=== PATIENT | male | born 1950 ===

== ENCOUNTER 2018-07-21 09:29 | Emergency (ER) | payer MEDICARE, OTHER ==
[~2018-07-21] VITALS: Ht 182.9 cm; Wt 90.7 kg
[~2018-07-21 09:29] MED LIST: ACYC5TO15G TOP; ALBU90OI INH; ASCO500 PO; ASPI81CH PO; ATHLETE S FOOT; ATOR20 PO; ATOR40TA PO; Ativan1 MG SL; CHOL10002 PO; CLOP75 PO; CYCL10 PO; DEXA4 PO; DIAZ10 PO; DIAZ2 PO; DIAZ5 PO; DULO60 PO; Dexamethasone1 MG PO; GINGER TEA; GUAI120S1 PO; GUAI600T33 PO; HYDACE5 PO; Hydrochloroth12.5 MG PO; IBUP600 PO; LEVE500 PO; LISHYD1012 PO; LISI10 PO; Norco 10-325 T1 EACH PO; OXYACE5T PO; Pepcid40 MG PO; Prednisone20 MG PO; Prinivil10 MG PO; RXHYDACE; SENN187 PO; SIME80CH PO; SPACE CHAMBER1 EACH MC; SULTRIDS PO; TICA90TA PO; TUMERIC; TURMERIC500 M1 PO; TURMERIC500 M2 PO; VALARIAN ROOT; VICODIN 5-3001 EACH PO; Vitamin C100 M1 PO; ZESTORETIC 20-121 EA PO; Zithromax250 MG PO
[2018-07-21 10:44] LABS: BASOPHILS ABSOLUTE AUTO 0.02 K/mm3 (0.00-0.23); BASOPHILS PERCENT AUTO 0 % (0-2); EOSINOPHILS ABSOLUTE AUTO 0.25 K/mm3 (0.00-0.68); EOSINOPHILS PERCENT AUTO 3 % (0-6); Hematocrit 43.4 % (37.0-53.0); Hemoglobin 14.4 g/dL (13.5-17.5); IMMATURE GRAN ABSOLUTE AUTO 0.04 K/mm3 (0.00-0.10); IMMATURE GRAN PERCENT AUTO 1 % (0-1); LYMPHOCYTES ABSOLUTE AUTO 1.15 K/mm3 (0.84-5.20); LYMPHOCYTES PERCENT AUTO 14 % (21-46); MONOCYTES ABSOLUTE AUTO 1.07 K/mm3 (0.16-1.47); MONOCYTES PERCENT AUTO 13 % (4-13); Mean Corpuscular HGB Conc 33.2 g/dL (31.5-36.5); Mean Corpuscular Volume 90 fL (80-100); Mean Platelet Volume 10.2 fL (9.1-12.4); NEUTROPHILS ABSOLUTE AUTO 5.99 K/mm3 (1.96-9.15); NEUTROPHILS PERCENT AUTO 70 % (41-73); Platelet Count 209 K/mm3 (150-400); RDW Standard Deviation 46.9 fL (35.1-46.3); White Blood Cell Count 8.52 K/mm3 (4.00-11.30)
[2018-07-21 11:01] LABS: Alanine Aminotransfer (ALT/SGP 45 U/L (12-78); Albumin, Blood 3.1 g/dL (3.4-5.0); Alk Phos 67 U/L (50-136); Anion Gap 6 mmol/L (6-16); Aspartate Aminotrans (AST/SGOT 26 U/L (12-37); Bilirubin, Total 1.3 mg/dL (0.1-1.0); Blood Urea Nitrogen 20 mg/dL (8-24); Bun/Creatinine Ratio 17.9 (12.0-20.0); CO2, Blood 31 mmol/L (21-32); Calcium, Blood 8.7 mg/dL (8.5-10.1); Chloride, Blood 107 mmol/L (98-108); Creatinine, Blood 1.12 mg/dL (0.60-1.20); Glomerular Filtration Rate >60 (60-); Glucose, Blood 82 mg/dL (70-99); Magnesium, Blood 2.2 mg/dL (1.6-2.4); Potassium, Blood 3.8 mmol/L (3.5-5.5); Sodium, Blood 144 mmol/L (136-145); Total Protein, Blood 6.1 g/dL (6.4-8.2)
[2018-07-21] MEDS ORDERED: Omeprazole20 M1 PO (11:25)
[2018-07-21] MEDS ORDERED: FAMO10 PO (11:26)
[2018-07-21 11:35] LABS: Bilirubin, Urine Neg (Neg); Blood, Urine Neg (Neg); Glucose Qualitative, Urine Neg (Neg); Ketones, Urine Neg (Neg); Leukocyte Esterase, Urine Neg (Neg); Nitrite, Urine Neg (Neg); Protein, Urine Neg (Neg); Specific Gravity, Urine 1.015 (1.003-1.022); Urobilinogen, Urine NORM (Normal)
[2018-07-21 12:12] LABS: Appearance, Urine Clear (Clear); Color, Urine Yellow (P-Yellow)
[2018-07-21] MEDS ORDERED: Cipro250 MG PO (12:40)
[2018-07-21] MEDS ORDERED: Zofran4 MG PO (12:40)
[2018-07-21] MEDS ORDERED: Norco 5-325 Ta1 EACH PO (12:40)
[2018-07-21] MEDS ORDERED: Flagyl250 MG PO (12:40)
== END 2018-07-21 12:51 | disposition home or self-care (01) ==
LOC: ER 09:29
PROVIDERS: Emergency Medicine
DX: K52.9 Noninfective gastroenteritis and colitis, unspecified (principal); Z88.8 Allergy status to other drugs, medicaments and biological substances; Z88.5 Allergy status to narcotic agent; Z79.899 Other long term (current) drug therapy; Z79.82 Long term (current) use of aspirin; I10 Essential (primary) hypertension; Z87.891 Personal history of nicotine dependence; Z85.841 Personal history of malignant neoplasm of brain
CPT/HCPCS: 36415; 74176; 80053; 81003; 83690; 83735; 85025; 96361; 96374; 96375; 96376; 99284-25; J2405; J3010; J7030

== ENCOUNTER → 2018-07-27 | Outpatient (CLI) | payer MEDICARE, OTHER ==
[~2018-07-27] MED LIST changes: +Cipro250 MG PO; +FAMO10 PO; +Flagyl250 MG PO; +Norco 5-325 Ta1 EACH PO; +Omeprazole20 M1 PO; +Zofran4 MG PO
[2018-07-27 12:08] LABS: Alanine Aminotransfer (ALT/SGP 76 U/L (12-78); Albumin, Blood 3.7 g/dL (3.4-5.0); Albumin/Globulin Ratio 1.2 (0.8-1.8); Alk Phos 56 U/L (40-126); Anion Gap 9 mmol/L (6-16); Aspartate Aminotrans (AST/SGOT 48 U/L (12-37); Bilirubin, Total 0.9 mg/dL (0.1-1.0); Blood Urea Nitrogen 9 mg/dL (8-24); Bun/Creatinine Ratio 7.7 (12.0-20.0); CO2, Blood 26 mmol/L (21-32); Calcium, Blood 9.3 mg/dL (8.5-10.1); Chloride, Blood 107 mmol/L (98-108); Creatinine, Blood 1.17 mg/dL (0.60-1.20); Globulin, Blood 3.1 g/dL (2.2-4.0); Glomerular Filtration Rate >60 (60-); Glucose, Blood 95 mg/dL (70-99); Potassium, Blood 3.7 mmol/L (3.5-5.5); Sodium, Blood 142 mmol/L (136-145); Total Protein, Blood 6.8 g/dL (6.4-8.2)
== END | disposition home or self-care (01) ==
LOC: LAB EV 11:47 → LAB SHORT 11:47
PROVIDERS: Physician Assistant
DX: K52.9 Noninfective gastroenteritis and colitis, unspecified (principal)
CPT/HCPCS: 80053

== ENCOUNTER → 2018-07-28 | Outpatient (CLI) | payer MEDICARE, OTHER ==
[2018-07-28 12:18] LABS: Adenovirus F 40/41 Not Detected (NOT DETECT); Astrovirus Not Detected (NOT DETECT); Campylobacter Sp Not Detected (NOT DETECT); Cryptosporidium Not Detected (NOT DETECT); Cyclospora Cayetanensis Not Detected (NOT DETECT); E. Coli O157 Not Detected (NOT DETECT); Entamoeba Histolytica Not Detected (NOT DETECT); Enteroaggregative E. coli-EAEC Not Detected (NOT DETECT); Enteropathogenic E. coli-EPEC Not Detected (NOT DETECT); Enterotoxigenic E. coli-ETEC Not Detected (NOT DETECT); Giardia Lamblia Not Detected (NOT DETECT); Norovirus GI/GII Not Detected (NOT DETECT); Plesiomonas Shigelloides Not Detected (NOT DETECT); Rotavirus A Not Detected (NOT DETECT); Salmonella Sp Not Detected (NOT DETECT); Sapovirus Not Detected (NOT DETECT); Shiga Toxin-prod E. coli-STEC Not Detected (NOT DETECT); Shigella/Enteroin E. coli-EIEC Not Detected (NOT DETECT); Vibrio Cholerae Not Detected (NOT DETECT); Vibrio Sp Not Detected (NOT DETECT); Yersinia Enterocolitica Not Detected (NOT DETECT)
== END | disposition home or self-care (01) ==
LOC: LAB EV 08:30
PROVIDERS: Physician Assistant
DX: K52.9 Noninfective gastroenteritis and colitis, unspecified (principal)
CPT/HCPCS: 87507

== ENCOUNTER 2018-08-12 13:06 | Emergency (ER) | payer MEDICARE, OTHER ==
[~2018-08-12] VITALS: Ht 182.9 cm; Wt 93.4 kg
[2018-08-12 14:03] LABS: BASOPHILS ABSOLUTE AUTO 0.08 K/mm3 (0.00-0.23); BASOPHILS PERCENT AUTO 1 % (0-2); EOSINOPHILS ABSOLUTE AUTO 0.18 K/mm3 (0.00-0.68); EOSINOPHILS PERCENT AUTO 3 % (0-6); Hematocrit 45.4 % (37.0-53.0); Hemoglobin 15.1 g/dL (13.5-17.5); IMMATURE GRAN ABSOLUTE AUTO 0.02 K/mm3 (0.00-0.10); IMMATURE GRAN PERCENT AUTO 0 % (0-1); LYMPHOCYTES PERCENT AUTO 24 % (21-46); MONOCYTES ABSOLUTE AUTO 0.95 K/mm3 (0.16-1.47); MONOCYTES PERCENT AUTO 15 % (4-13); Mean Corpuscular HGB 29.2 pg (26.0-34.0); Mean Corpuscular HGB Conc 33.3 g/dL (31.5-36.5); Mean Corpuscular Volume 88 fL (80-100); Mean Platelet Volume 9.7 fL (9.1-12.4); NEUTROPHILS ABSOLUTE AUTO 3.56 K/mm3 (1.96-9.15); NEUTROPHILS PERCENT AUTO 57 % (41-73); Platelet Count 296 K/mm3 (150-400); RDW Coefficient Variation 13.4 % (11.7-14.2); RDW Standard Deviation 43.2 fL (35.1-46.3); Red Blood Cell Count 5.18 M/mm3 (4.30-5.90); White Blood Cell Count 6.29 K/mm3 (4.00-11.30)
[2018-08-12 14:17] LABS: Alanine Aminotransfer (ALT/SGP 47 U/L (12-78); Albumin, Blood 3.3 g/dL (3.4-5.0); Alk Phos 56 U/L (50-136); Anion Gap 7 mmol/L (6-16); Aspartate Aminotrans (AST/SGOT 44 U/L (12-37); Bilirubin, Total 1.2 mg/dL (0.1-1.0); Blood Urea Nitrogen 6 mg/dL (8-24); Bun/Creatinine Ratio 6.4 (12.0-20.0); CO2, Blood 29 mmol/L (21-32); Calcium, Blood 9.1 mg/dL (8.5-10.1); Chloride, Blood 109 mmol/L (98-108); Creatinine, Blood 0.94 mg/dL (0.60-1.20); Globulin, Blood 3.2 g/dL (2.2-4.0); Glomerular Filtration Rate >60 (60-); Glucose, Blood 94 mg/dL (70-99); Potassium, Blood 3.7 mmol/L (3.5-5.5); Sodium, Blood 145 mmol/L (136-145); Total Protein, Blood 6.5 g/dL (6.4-8.2)
== END 2018-08-12 16:50 | disposition home or self-care (01) ==
LOC: ER 13:06
PROVIDERS: Internal Medicine
DX: R53.1 Weakness (principal); I10 Essential (primary) hypertension; Z87.891 Personal history of nicotine dependence
CPT/HCPCS: 36415; 71046; 80053; 84484; 85025; 93005; 93010; 99285-25

== ENCOUNTER 2019-04-04 11:58 | Emergency (ER) | payer MEDICARE, OTHER ==
[~2019-04-04] VITALS: Ht 182.9 cm; Wt 84.8 kg
[~2019-04-04 11:58] MED LIST changes: +Diflucan100 MG PO; +HYDR25SUP PR
[2019-04-04] MEDS ORDERED: Norco 5-325 Ta1 EACH PO (13:15)
== END 2019-04-04 13:43 | disposition home or self-care (01) ==
LOC: ER 11:58
DX: S51.811A Laceration without foreign body of right forearm, initial encounter (principal); W22.8XXA Striking against or struck by other objects, initial encounter; I10 Essential (primary) hypertension; Z87.891 Personal history of nicotine dependence; Z88.8 Allergy status to other drugs, medicaments and biological substances; Z79.899 Other long term (current) drug therapy; Z79.891 Long term (current) use of opiate analgesic
CPT/HCPCS: 73090; 99283-25; A9270-GY

== ENCOUNTER 2019-06-13 11:20 | Emergency (ER) | payer MEDICARE, OTHER ==
[~2019-06-13] VITALS: Ht 182.9 cm; Wt 86.2 kg
[2019-06-13 12:03] LABS: BASOPHILS ABSOLUTE AUTO 0.05 K/mm3 (0.00-0.23); BASOPHILS PERCENT AUTO 1 % (0-2); EOSINOPHILS ABSOLUTE AUTO 0.12 K/mm3 (0.00-0.68); EOSINOPHILS PERCENT AUTO 3 % (0-6); Hematocrit 36.5 % (37.0-53.0); IMMATURE GRAN ABSOLUTE AUTO 0.03 K/mm3 (0.00-0.10); IMMATURE GRAN PERCENT AUTO 1 % (0-1); LYMPHOCYTES ABSOLUTE AUTO 1.18 K/mm3 (0.84-5.20); LYMPHOCYTES PERCENT AUTO 24 % (21-46); MONOCYTES ABSOLUTE AUTO 0.58 K/mm3 (0.16-1.47); MONOCYTES PERCENT AUTO 12 % (4-13); Mean Corpuscular HGB 32.3 pg (26.0-34.0); Mean Corpuscular HGB Conc 32.9 g/dL (31.5-36.5); Mean Corpuscular Volume 98 fL (80-100); Mean Platelet Volume 9.4 fL (9.1-12.4); NEUTROPHILS ABSOLUTE AUTO 2.92 K/mm3 (1.96-9.15); NEUTROPHILS PERCENT AUTO 60 % (41-73); Platelet Count 254 K/mm3 (150-400); RDW Coefficient Variation 15.3 % (11.7-14.2); RDW Standard Deviation 55.4 fL (35.1-46.3); Red Blood Cell Count 3.72 M/mm3 (4.30-5.90); White Blood Cell Count 4.88 K/mm3 (4.00-11.30)
[2019-06-13 12:18] LABS: Source, Urine Clean Catch
[2019-06-13 12:24] LABS: Bilirubin, Urine Neg (Neg); Blood, Urine Neg (Neg); Glucose Qualitative, Urine Neg (Neg); Ketones, Urine Neg (Neg); Leukocyte Esterase, Urine Neg (Neg); Nitrite, Urine Neg (Neg); Protein, Urine Neg (Neg); Urobilinogen, Urine NORM (Normal)
[2019-06-13 12:29] LABS: Appearance, Urine Clear (Clear); Color, Urine Yellow (P-Yellow)
[2019-06-13 12:40] LABS: Alanine Aminotransfer (ALT/SGP 44 U/L (12-78); Albumin, Blood 3.1 g/dL (3.4-5.0); Alk Phos 61 U/L (50-136); Anion Gap 8 mmol/L (6-16); Aspartate Aminotrans (AST/SGOT 40 U/L (12-37); Bilirubin, Total 0.8 mg/dL (0.1-1.0); Blood Urea Nitrogen 7 mg/dL (8-24); Bun/Creatinine Ratio 9.4 (12.0-20.0); CO2, Blood 28 mmol/L (21-32); Calcium, Blood 9.2 mg/dL (8.5-10.1); Chloride, Blood 111 mmol/L (98-108); Creatinine, Blood 0.74 mg/dL (0.60-1.20); Glomerular Filtration Rate >60 (60-); Glucose, Blood 99 mg/dL (70-99); Potassium, Blood 3.6 mmol/L (3.5-5.5); Sodium, Blood 147 mmol/L (136-145); Total Protein, Blood 6.1 g/dL (6.4-8.2)
[2019-06-13] MEDS ORDERED: Prinivil10 MG PO (13:21)
== END 2019-06-13 14:45 | disposition home or self-care (01) ==
LOC: ER 11:20
PROVIDERS: Emergency Medicine
DX: K21.9 Gastro-esophageal reflux disease without esophagitis (principal); Z88.8 Allergy status to other drugs, medicaments and biological substances; Z88.5 Allergy status to narcotic agent; Z79.899 Other long term (current) drug therapy; I10 Essential (primary) hypertension; E66.9 Obesity, unspecified; Z87.891 Personal history of nicotine dependence; Z68.25 Body mass index [BMI] 25.0-25.9, adult
CPT/HCPCS: 36415; 80053; 81003; 83690; 85025; 93005; 93010; 99284-25

== ENCOUNTER 2019-07-22 12:16 | Emergency (ER) | payer MEDICARE, OTHER ==
[~2019-07-22] VITALS: Ht 182.9 cm; Wt 86.6 kg
[2019-07-22] MEDS ORDERED: Zantac150 MG PO (12:47)
[2019-07-22] MEDS ORDERED: CITA20 PO (12:47)
[2019-07-22] MEDS ORDERED: Aspir 8181 MG PO (12:49)
== END 2019-07-22 13:25 | disposition home or self-care (01) ==
LOC: ER 12:16
DX: I10 Essential (primary) hypertension (principal); Z87.891 Personal history of nicotine dependence; Z88.8 Allergy status to other drugs, medicaments and biological substances; Z88.5 Allergy status to narcotic agent; Z79.899 Other long term (current) drug therapy; Z79.82 Long term (current) use of aspirin; E66.9 Obesity, unspecified; Z68.25 Body mass index [BMI] 25.0-25.9, adult
CPT/HCPCS: 99283

== ENCOUNTER 2020-11-20 10:14 | Emergency (ER) | payer MEDICARE, OTHER ==
[~2020-11-20] VITALS: Ht 182.9 cm; Wt 83.0 kg
[~2020-11-20 10:14] MED LIST changes: +Aspir 8181 MG PO; +CITA20 PO; +CYAN500 PO; +DEXA2 PO; +Fish Oil 10001000 MG GT; +HYDROCHLOROTH12.5 MG PO; +KETO200 PO; +OMEP20ER PO; +POTA10T PO; +PROCTOSOL-HC30 GM; +Slo-Niacin250 MG PO; +Zantac150 MG PO
[2020-11-20 12:12] LABS: BASOPHILS ABSOLUTE AUTO 0.01 K/mm3 (0.00-0.23); BASOPHILS PERCENT AUTO 0 % (0-2); EOSINOPHILS ABSOLUTE AUTO 0.01 K/mm3 (0.00-0.68); EOSINOPHILS PERCENT AUTO 0 % (0-6); Hematocrit 36.9 % (37.0-53.0); Hemoglobin 12.3 g/dL (13.5-17.5); IMMATURE GRAN ABSOLUTE AUTO 0.18 K/mm3 (0.00-0.10); IMMATURE GRAN PERCENT AUTO 2 % (0-1); LYMPHOCYTES PERCENT AUTO 3 % (21-46); MONOCYTES ABSOLUTE AUTO 0.45 K/mm3 (0.16-1.47); MONOCYTES PERCENT AUTO 4 % (4-13); Mean Corpuscular HGB 31.5 pg (26.0-34.0); Mean Corpuscular HGB Conc 33.3 g/dL (31.5-36.5); Mean Corpuscular Volume 94 fL (80-100); Mean Platelet Volume 9.4 fL (9.1-12.4); NEUTROPHILS ABSOLUTE AUTO 10.79 K/mm3 (1.96-9.15); NEUTROPHILS PERCENT AUTO 91 % (41-73); NRBC ABSOLUTE 0.02 K/mm3 (0.00-0.02); NRBC Auto 0.2 /100 WBC (0.0-0.2); Platelet Count 121 K/mm3 (150-400); RDW Coefficient Variation 16.5 % (11.7-14.2); RDW Standard Deviation 56.9 fL (35.1-46.3); Red Blood Cell Count 3.91 M/mm3 (4.30-5.90); White Blood Cell Count 11.84 K/mm3 (4.00-11.30)
[2020-11-20 12:29] LABS: Prothrombin Time Results 10.7 Sec (9.7-11.5)
[2020-11-20 12:33] LABS: Alanine Aminotransfer (ALT/SGP 68 U/L (12-78); Albumin/Globulin Ratio 1.3 (0.8-1.8); Alk Phos 86 U/L (50-136); Anion Gap 7 mmol/L (6-16); Aspartate Aminotrans (AST/SGOT 23 U/L (12-37); Bilirubin, Total 1.9 mg/dL (0.1-1.0); Blood Urea Nitrogen 22 mg/dL (8-24); Bun/Creatinine Ratio 26.1 (12.0-20.0); CO2, Blood 30 mmol/L (21-32); Calcium, Blood 8.6 mg/dL (8.5-10.1); Chloride, Blood 102 mmol/L (98-108); Creatinine, Blood 0.84 mg/dL (0.60-1.20); Globulin, Blood 2.3 g/dL (2.2-4.0); Glomerular Filtration Rate >60 (60-); Glucose, Blood 102 mg/dL (70-99); Potassium, Blood 3.5 mmol/L (3.5-5.5); Sodium, Blood 139 mmol/L (136-145); Total Protein, Blood 5.3 g/dL (6.4-8.2)
[2020-11-20] MEDS ORDERED: FUROSEMIDE20 MG PO (14:04)
[2020-11-20] MEDS ORDERED: ARIPIPRAZOLE2 M1 PO (14:04)
[2020-11-20] MEDS ORDERED: K-TAB ER20 ME1 PO (14:05)
[2020-11-20] MEDS ORDERED: Cephalexin500 MG PO (14:14)
[2020-11-20] MEDS ORDERED: ZOLP10 PO (14:16)
[2020-11-20] MEDS ORDERED: HYDACE10B PO (14:17)
== END 2020-11-20 14:42 | disposition home or self-care (01) ==
LOC: ER 10:14
PROVIDERS: Emergency Medicine
DX: M79.605 Pain in left leg (principal); I10 Essential (primary) hypertension; J43.9 Emphysema, unspecified; Z79.52 Long term (current) use of systemic steroids; Z79.899 Other long term (current) drug therapy; Z79.82 Long term (current) use of aspirin; Z88.8 Allergy status to other drugs, medicaments and biological substances
CPT/HCPCS: 36415; 73610; 73630; 80053; 83605; 85025; 85610; 85730; 93971; 96365; 99284-25; A9270; J3370

== ENCOUNTER 2021-02-18 12:05 | Inpatient (IN) | payer MEDICARE, OTHER ==
[~2021-02-18] VITALS: Ht 177.8 cm; Wt 90.4 kg
[~2021-02-18 12:05] MED LIST changes: +ARIPIPRAZOLE2 M1 PO; +Cephalexin500 MG PO; +FUROSEMIDE20 MG PO; +HYDACE10B PO; +K-TAB ER20 ME1 PO; +ZOLP10 PO
[2021-02-18 12:46] LABS: BASOPHILS ABSOLUTE AUTO 0.09 K/mm3 (0.00-0.23); BASOPHILS PERCENT AUTO 1 % (0-2); EOSINOPHILS ABSOLUTE AUTO 0.19 K/mm3 (0.00-0.68); EOSINOPHILS PERCENT AUTO 3 % (0-6); Hematocrit 38.3 % (37.0-53.0); Hemoglobin 12.4 g/dL (13.5-17.5); IMMATURE GRAN ABSOLUTE AUTO 0.09 K/mm3 (0.00-0.10); IMMATURE GRAN PERCENT AUTO 1 % (0-1); LYMPHOCYTES ABSOLUTE AUTO 1.18 K/mm3 (0.84-5.20); LYMPHOCYTES PERCENT AUTO 16 % (21-46); MONOCYTES ABSOLUTE AUTO 0.66 K/mm3 (0.16-1.47); MONOCYTES PERCENT AUTO 9 % (4-13); Mean Corpuscular HGB 31.1 pg (26.0-34.0); Mean Corpuscular HGB Conc 32.4 g/dL (31.5-36.5); Mean Corpuscular Volume 96 fL (80-100); Mean Platelet Volume 9.7 fL (9.1-12.4); NEUTROPHILS ABSOLUTE AUTO 5.26 K/mm3 (1.96-9.15); NEUTROPHILS PERCENT AUTO 71 % (41-73); Platelet Count 325 K/mm3 (150-400); RDW Standard Deviation 56.8 fL (35.1-46.3); Red Blood Cell Count 3.99 M/mm3 (4.30-5.90); White Blood Cell Count 7.47 K/mm3 (4.00-11.30)
[2021-02-18 12:48] LABS: Source, Urine Clean Catch
[2021-02-18 12:54] LABS: Appearance, Urine Clear (Clear); Bilirubin, Urine Neg (Neg); Blood, Urine Neg (Neg); Color, Urine Yellow (P-Yellow); Glucose Qualitative, Urine Neg (Neg); Ketones, Urine Neg (Neg); Leukocyte Esterase, Urine 1+ (Neg); Nitrite, Urine Neg (Neg); Protein, Urine 1+ (Neg); Urobilinogen, Urine NORM (Normal)
[2021-02-18 13:03] LABS: Alanine Aminotransfer (ALT/SGP 29 U/L (12-78); Albumin, Blood 2.9 g/dL (3.4-5.0); Albumin/Globulin Ratio 0.9 (0.8-1.8); Alk Phos 111 U/L (50-136); Anion Gap 5 mmol/L (6-16); Aspartate Aminotrans (AST/SGOT 25 U/L (12-37); Bilirubin, Total 1.2 mg/dL (0.1-1.0); Blood Urea Nitrogen 13 mg/dL (8-24); Bun/Creatinine Ratio 17.2 (12.0-20.0); CO2, Blood 28 mmol/L (21-32); Chloride, Blood 111 mmol/L (98-108); Creatinine, Blood 0.76 mg/dL (0.60-1.20); Globulin, Blood 3.3 g/dL (2.2-4.0); Glomerular Filtration Rate >60 (60-); Glucose, Blood 92 mg/dL (70-99); Potassium, Blood 3.5 mmol/L (3.5-5.5); Sodium, Blood 144 mmol/L (136-145); Total Protein, Blood 6.2 g/dL (6.4-8.2)
[2021-02-18 13:09] LABS: Bacteria Rare /hpf; Calcium Oxalate Crystals Few /hpf; Mucus Light (0-Heavy); Red Blood Cells, Urine 0-2 /hpf (0-2); Squamous Epithelial Cells Rare /hpf (Few)
[2021-02-18] MEDS ORDERED: Prozac20 MG PO (14:25)
[2021-02-18] MEDS ORDERED: FURO20 PO (14:31)
[2021-02-18] MEDS ORDERED: DIAZEPAM10 MG PO (18:30)
[2021-02-18] MEDS ORDERED: ZOLPIDEM TARTRA10 MG PO (18:31)
[2021-02-18] MEDS ORDERED: Abilify2 MG PO (18:31)
--- NOTE | 2021-02-19 04:34 | NUR ---
SHIFT SUMMARY NEW ED ADMIT THIS EVENING. PT IS A/O X 3-4. PT WAS ABLE TO TELL ME WHERE HE WAS, WHO HE WAS, RECOGNIZED FRIEND/CAREGIVER, KNEW THE DATE AT ONE POINT BUT THEN COULD NOT REMEMBER LATER IN THE EVENING. PT HAS A HARD TIME REMEMBERING THINGS. AT TIMES PT WAS ANSWERING QUESTIONS WITH ANSWERS THAT DID NOT MATCH THE QUESTION. PT HAS HOWEVER CALLED APPROPRIATELY THIS EVENING TO USE THE URINAL. HAS BEEN BEDREST. NO COMPLAINTS OF PAIN. WEAKNESS REPORTED TO BILATERAL LOWER EXTREMETIES. MRI ORDERED FOR THIS AM. MRI SCREENING FORM FILLED OUT AND FAXED. CAREGIVER/FRIEND KAYCEE ([phone]) CALLED. UPDATE GIVEN. OKAY'D BY PATIENT. VITAL SIGNS STABLE. WILL CONTINUE TO MONITOR AND REPORT TO DAY RN.
[2021-02-19 05:10] LABS: BASOPHILS ABSOLUTE AUTO 0.08 K/mm3 (0.00-0.23); BASOPHILS PERCENT AUTO 2 % (0-2); EOSINOPHILS ABSOLUTE AUTO 0.12 K/mm3 (0.00-0.68); EOSINOPHILS PERCENT AUTO 2 % (0-6); Hematocrit 31.6 % (37.0-53.0); Hemoglobin 10.2 g/dL (13.5-17.5); IMMATURE GRAN ABSOLUTE AUTO 0.06 K/mm3 (0.00-0.10); IMMATURE GRAN PERCENT AUTO 1 % (0-1); LYMPHOCYTES ABSOLUTE AUTO 1.03 K/mm3 (0.84-5.20); LYMPHOCYTES PERCENT AUTO 19 % (21-46); MONOCYTES ABSOLUTE AUTO 0.66 K/mm3 (0.16-1.47); MONOCYTES PERCENT AUTO 12 % (4-13); Mean Corpuscular HGB 30.9 pg (26.0-34.0); Mean Corpuscular HGB Conc 32.3 g/dL (31.5-36.5); Mean Corpuscular Volume 96 fL (80-100); NEUTROPHILS ABSOLUTE AUTO 3.37 K/mm3 (1.96-9.15); NEUTROPHILS PERCENT AUTO 63 % (41-73); Platelet Count 287 K/mm3 (150-400); RDW Coefficient Variation 16.1 % (11.7-14.2); RDW Standard Deviation 56.2 fL (35.1-46.3); White Blood Cell Count 5.32 K/mm3 (4.00-11.30)
[2021-02-19 05:45] LABS: Anion Gap 5 mmol/L (6-16); Blood Urea Nitrogen 11 mg/dL (8-24); Bun/Creatinine Ratio 14.3 (12.0-20.0); CO2, Blood 29 mmol/L (21-32); Calcium, Blood 8.1 mg/dL (8.5-10.1); Chloride, Blood 113 mmol/L (98-108); Creatinine, Blood 0.77 mg/dL (0.60-1.20); Glomerular Filtration Rate >60 (60-); Glucose, Blood 79 mg/dL (70-99); Potassium, Blood 3.2 mmol/L (3.5-5.5); Sodium, Blood 147 mmol/L (136-145)
--- NOTE | 2021-02-19 10:16 | NUR ---
PT TO IMAGING FOR MRI.
[2021-02-19] MEDS ORDERED: HYDACE10B PO (11:45)
[2021-02-19] MEDS ORDERED: FISH OIL 1,2001 EAC4 PO (11:46)
--- NOTE | 2021-02-19 14:00 | NUR ---
CONFIRMED WITH PT CAREGIVER/FRIEND KAYCEE PT HOME MEDICATIONS. SHE ALSO REPORTS PT RECENTLY RECEIVED A STEROID INJECTION ON February WITH DR SOTELO AND COMPLETED A DEXAMETHASONE TAPER ON January.
--- NOTE | 2021-02-19 15:07 | NUR ---
JUAN CARLOS FROM [facility] ([phone]) CALLED FOR AN UPDATE ON PT. PER JUAN CARLOS THEY STILL DO NOT HAVE A BED AVAILABLE FOR PT BUT PT REMAINS ON THE LIST. MRI RESULTS PUSHED TO [facility].
--- NOTE | 2021-02-19 16:55 | NUR ---
SHIFT SUMMARY- PT A/O TO PERSON AND PLACE, PT FORGETFUL AT TIMES AND DIFFICULT AT EXPRESSING HIS THOUGHTS. PT UP TO BATHROOM WITH SBA AND FWW. PT MEDICATED WITH TYLENOL X1 AND NORCO X1 FOR PAIN TO LOWER BACK, PAIN INCREASES WITH MOVEMENT. LS CLEAR, ON RA. HRR. PT DID GET A ROOM THIS EVENING AT [facility] 10K ROOM 3. NURSE TO NURSE TO BE CALLED. NO OTHER ACUTE CHANGES THIS SHIFT.
--- NOTE | 2021-02-19 19:20 | NUR ---
REPORT CALLED TO BART AT [facility]. NOTIFIED FRIEND/CAREGIVER KAYCEE OF PT TRANSFER TO [facility]. PT REQUESTING [facility] FOR THE RIDE. AWAITING GURNEY TRANSPORT AT THIS TIME.
--- NOTE | 2021-02-19 19:35 | NUR ---
PT DC'D VIA [facility] AT 1935.
== END 2021-02-19 19:35 | disposition short-term general hospital (02) | DRG 543 ==
LOC: ER 12:05 → MEDS 12:06 → ER 21:24 → MEDS 21:24
PROVIDERS: Nurse Practitioner Acute Care; Physician Assistant; ADMIT Family Medicine
DX: M80.88XA Other osteoporosis with current pathological fracture, vertebra(e), initial encounter for fracture (principal); C71.0 Malignant neoplasm of cerebrum, except lobes and ventricles; I25.10 Atherosclerotic heart disease of native coronary artery without angina pectoris; M48.061 Spinal stenosis, lumbar region without neurogenic claudication; I10 Essential (primary) hypertension; Z66 Do not resuscitate; N40.0 Benign prostatic hyperplasia without lower urinary tract symptoms; K21.9 Gastro-esophageal reflux disease without esophagitis; E87.6 Hypokalemia; F32.9 Major depressive disorder, single episode, unspecified; G89.29 Other chronic pain; F41.9 Anxiety disorder, unspecified; J43.9 Emphysema, unspecified; Z95.5 Presence of coronary angioplasty implant and graft; Z88.3 Allergy status to other anti-infective agents; Z88.8 Allergy status to other drugs, medicaments and biological substances; Z90.49 Acquired absence of other specified parts of digestive tract; Z98.890 Other specified postprocedural states; Z98.1 Arthrodesis status; Z79.82 Long term (current) use of aspirin; Z79.899 Other long term (current) drug therapy; Z87.891 Personal history of nicotine dependence; Z98.49 Cataract extraction status, unspecified eye
CPT/HCPCS: 36415; 70450; 72128; 72131; 72148; 80048; 80053; 81001; 84443; 85025; 87086; 97110; 97162; 97530; 99285-25; A9270; A9270-GY; J1644

== ENCOUNTER 2021-02-22 10:54 | Observation (INO) | payer MEDICARE, OTHER ==
[~2021-02-22] VITALS: Ht 182.9 cm; Wt 82.9 kg
[~2021-02-22 10:54] MED LIST changes: +Abilify2 MG PO; +DIAZEPAM10 MG PO; +FISH OIL 1,2001 EAC4 PO; +FURO20 PO; +Prozac20 MG PO; +ZOLPIDEM TARTRA10 MG PO
--- NOTE | 2021-02-22 12:49 | NUR ---
Called to ER to meet with patient. He has his friend at the bedside who has been trying to help him. He relayed his struggles with some significant back pain. He has been falling and loosing his ability to walk. He is haveing more difficulty with talking and following a conversation. He asked for assistance with turning off his back because of the pain and he is loosing the ability to lift his legs. Requested admission for confort care and hospice placement. Pt lives in an and connot manage that anymore. His friend cannot care for him she is greatly fatigued and he has almost knocked her over a few times. She has been trying to lift and turn him. Pt struggling to accept his prognosis and rapid decline. He will need placement on hospice. Last admission the were working with care management on a plan. They then went to [facility] and plans were placed on hold.
[2021-02-22 14:31] LABS: BASOPHILS ABSOLUTE AUTO 0.07 K/mm3 (0.00-0.23); BASOPHILS PERCENT AUTO 1 % (0-2); EOSINOPHILS ABSOLUTE AUTO 0.14 K/mm3 (0.00-0.68); EOSINOPHILS PERCENT AUTO 2 % (0-6); Hematocrit 33.9 % (37.0-53.0); IMMATURE GRAN ABSOLUTE AUTO 0.04 K/mm3 (0.00-0.10); IMMATURE GRAN PERCENT AUTO 1 % (0-1); LYMPHOCYTES ABSOLUTE AUTO 1.23 K/mm3 (0.84-5.20); LYMPHOCYTES PERCENT AUTO 17 % (21-46); MONOCYTES ABSOLUTE AUTO 0.92 K/mm3 (0.16-1.47); MONOCYTES PERCENT AUTO 13 % (4-13); Mean Corpuscular HGB 30.9 pg (26.0-34.0); Mean Corpuscular HGB Conc 32.4 g/dL (31.5-36.5); Mean Corpuscular Volume 95 fL (80-100); Mean Platelet Volume 9.4 fL (9.1-12.4); NEUTROPHILS ABSOLUTE AUTO 4.75 K/mm3 (1.96-9.15); NEUTROPHILS PERCENT AUTO 66 % (41-73); Platelet Count 299 K/mm3 (150-400); RDW Coefficient Variation 15.9 % (11.7-14.2); RDW Standard Deviation 55.6 fL (35.1-46.3); Red Blood Cell Count 3.56 M/mm3 (4.30-5.90); White Blood Cell Count 7.15 K/mm3 (4.00-11.30)
[2021-02-22 14:59] LABS: Albumin, Blood 2.6 g/dL (3.4-5.0); Anion Gap 3 mmol/L (6-16); Blood Urea Nitrogen 11 mg/dL (8-24); Bun/Creatinine Ratio 13.8 (12.0-20.0); CO2, Blood 32 mmol/L (21-32); Calcium, Blood 8.7 mg/dL (8.5-10.1); Chloride, Blood 111 mmol/L (98-108); Glomerular Filtration Rate >60 (60-); Glucose, Blood 96 mg/dL (70-99); Phosphorus, Blood 3.4 mg/dL (2.5-4.9); Potassium, Blood 3.7 mmol/L (3.5-5.5); Sodium, Blood 146 mmol/L (136-145)
--- NOTE | 2021-02-22 15:26 | NUR ---
REPORT FROM SUSAN RAMSEY RN
[2021-02-22] MEDS ORDERED: Prozac20 MG PO (16:52)
[2021-02-22] MEDS ORDERED: FURO20 PO (16:53)
--- NOTE | 2021-02-23 05:37 | NUR ---
SHIFT SUMMARY PATIENT ALERT AND ORIENTED. WAS MEDICATED PER EMAR FOR PAIN. NO COMPLAINTS OF SHORTNESS OF BREATH. PATIENT SLEPT WELL OVERNIGHT AND HAD MINIMAL NEEDS. NO ACUTE ISSUES NOTED OVERNIGHT. IV PATENT AND FLUSHED. BED IN LOWEST POSITION WITH WHEELS LOCKED AND ALARM ON. CALL LIGHT WITHIN REACH. REPORT GIVEN TO ONCOMING RN.
--- NOTE | 2021-02-24 05:11 | NUR ---
SHIFT SUMMARY NO ACUTE EVENTS THIS SHIFT. PT WAS ABLE TO TAKE A SHOWER @ 0230, WHICH IN TURN HELPED PT SLEEP. OTHERWISE NO OTHER COMPLAINTS THIS SHIFT. PT IS LAYING IN BED WITH EYES CLOSED, EVEN AND UNLABORED RESPIRATIONS. BED IN LOWERED POSITION WITH BED ALARM IN PLACE FOR SAFETY. CALL LIGHT AND PERSONAL ITEMS WITH IN REACH. NO APPARENT NEEDS OR DISTRESS AT THIS TIME, WILL CONTINUE TO MONITOR UNTIL REPORT GIVEN TO DAY RN.
--- NOTE | 2021-02-24 13:32 | NUR ---
Pt. is lying in bed resting and wants to sleep prayed and left pt. to sleep.
--- NOTE | 2021-02-24 18:15 | NUR ---
SHIFT SUMMARY PT AMBULATED IN THE [facility] WITH PHYSICAL THERAPY. PT WAS ANXIOUS EARLIER AND VALIUM ADMINISTERED PER EMAR. MEDICATED FOR PAIN X1. PT SLEPT FOR A COUPLE HOURS AFTER. PT IS FORGETFUL AND HAS DIFFICULTY REMEMBERING SOME WORDS WHEN TALKING. PT REPORTS THIS IS NORMAL AND RELATED TO HIS BRAIN TUMOR. PT HAS HAD NO ACUTE CHANGES THIS SHIFT. PLANS FOR DISCHARGE TOMORROW. CALL LIGHT IN REACH AND CHAIR ALARM ON FOR SAFETY.
[2021-02-25] MEDS ORDERED: Norco 5-325 Ta1 EACH PO (10:50)
[2021-02-25] MEDS ORDERED: ACET325 PO (10:53)
[2021-02-25] MEDS ORDERED: CALCIUM CARBON200 M1 PO (10:54)
[2021-02-25] MEDS ORDERED: ONDA4ODT MM (10:55)
[2021-02-25] MEDS ORDERED: PAIN RELIEF1 EACH TOP (10:55)
[2021-02-25] MEDS ORDERED: NORCO 7.5-3251 EAC1 PO (10:57)
--- NOTE | 2021-02-25 12:44 | NUR ---
Review of patient with Dr Barclay for appropriate and supportive home plan to avoid readmission and to have a back up plan for pt.
--- NOTE | 2021-02-25 14:05 | NUR ---
DISCHARGE PT DISCHARGED TO HOME WITH HOME HEALTH WITH . DISCHARGED VIA WC WITH DISCHARGE VOLUNTEER. IV DC'D. PT AND EDUCATED ABOUT MEDICATIONS AND WAS GIVEN SCRIPT FOR HYDROCODONE. THEY ARE EDUCATED ABOUT THE ANY ADDITIONAL OR CHANGES TO MEDS. FAXED THE MEDS TO [facility], AND PT HAS FOLLOW UP APPOINTMENT TOMORROW TO PCP AT 11:15. PT HAS VERY SHORT TERM MEMORY; THEREFORE AT BEDSIDE WAS EDUCATED WITH THE PRINTED PACKETS. VALUABLE ITEMS WITH PT. PT EDUCATED ABOUT HOME HEALTH.
== END 2021-02-25 13:42 | disposition home health service (06) ==
LOC: ER 10:54 → ERHOLD 10:55 → MEDS 15:33
PROVIDERS: ADMIT Internal Medicine
DX: M80.88XA Other osteoporosis with current pathological fracture, vertebra(e), initial encounter for fracture (principal); C71.0 Malignant neoplasm of cerebrum, except lobes and ventricles; M48.061 Spinal stenosis, lumbar region without neurogenic claudication; I25.10 Atherosclerotic heart disease of native coronary artery without angina pectoris; F32.9 Major depressive disorder, single episode, unspecified; F41.9 Anxiety disorder, unspecified; I10 Essential (primary) hypertension; Z66 Do not resuscitate; Z95.5 Presence of coronary angioplasty implant and graft; Z51.5 Encounter for palliative care; K21.9 Gastro-esophageal reflux disease without esophagitis; Z87.891 Personal history of nicotine dependence; Z88.8 Allergy status to other drugs, medicaments and biological substances; Z98.1 Arthrodesis status; Z79.82 Long term (current) use of aspirin
CPT/HCPCS: 36415; 80069; 85025; 97116; 97162; 97165; 97530; 99284; A9270; A9270-GY; G0378

== ENCOUNTER → 2021-04-16 | Outpatient (CLI) | payer MEDICARE, OTHER ==
[~2021-04-16] MED LIST changes: +ACET325 PO; +CALCIUM CARBON200 M1 PO; +NORCO 7.5-3251 EAC1 PO; +ONDA4ODT MM; +PAIN RELIEF1 EACH TOP
== END | disposition home or self-care (01) ==
LOC: LAB 15:13 → LAB SHORT 15:13
DX: R21 Rash and other nonspecific skin eruption (principal)
CPT/HCPCS: 87070; 87075; 87106; 87205